=== PATIENT | female | born 1960 ===

== ENCOUNTER → 2019-02-17 | Day surgery (SDC) | payer OTHER ==
[~2019-02-17] MED LIST: CLONAZEPAM1 M1 PO; DECADRON4 MG PO; GABAPENTIN800 MG PO; GLUMETZA1000 MG PO; PEPCID AC20 MG PO; SEROQUEL50 MG PO; TYLENOL ARTHRI650 MG PO; ULTRAM50 MG PO; ZOCOR20 MG PO
== END | disposition home or self-care (01) ==
LOC: ADM 02-09 09:15 → CIR.AMB 08:47
DX: G56.22 Lesion of ulnar nerve, left upper limb (principal)